=== PATIENT | female | born 1935 | race Caucasian/White ===

== ENCOUNTER 2016-07-28 18:13 | Inpatient (IN) ==
[2016-07-28 18:54] LABS: Bilirubin,Urine Negative (Negative); Blood,Urine Negative (Negative); Clarity,Urine Clear (Clear); Color,Urine Yellow (Yellow); Glucose,Urine (UA) Normal (Normal); Ketones,Urine Negative (Negative); Leukocyte Esterase,Urine Trace (Negative); Nitrite,Urine Negative (Negative); PH,Urine 6.5 pH Units (5.0-8.0); Protein,Urine Negative (Neg-Trace); Specific Gravity,Urine 1.011 (1.010-1.025); Urobilinogen,Urine Normal (Normal)
[2016-07-28 18:57] LABS: Bacteria,Urine None Seen per hpf (None-Few); Hyaline Casts,Urine None Seen per lpf (None-Few); RBC,Urine 0-3 per hpf (0-3); Squamous Epithelial Cell,Urine Many per lpf (None-Few)
--- NOTE | 2016-07-28 19:23 | Emergency Department Note ---
Disposition Clinical Impression: Near syncope, Frail elderly, Pacemaker, Renal insufficiency, Cerebral vascular disease, Pre-syncope Disposition: Admitted As Inpatient [facility] - Forms: ED Satisfaction Letter General Adult HPI - General Chief complaint: ED Dizziness Stated complaint: Lightheaded Source: patient, EMS Limitations: no limitations - History of Present Illness HPI Narrative: 81-year-old female [place] the emergency department [place] the [place]. She was at home today and felt poorly and had some trouble standing up because she felt dizzy. The patient did not fall down. She had no trouble moving her arms or legs independently no arm or leg weakness or numbness on either side she did not develop dysarthria or confusion. The patient's grandchildren noticed that she was not feeling well to look her to the [place] where they evaluated her and were concerned about her general health status and sent her to the ED. The patient has had no chest pain or shortness of breath. She denies abdominal pain vomiting or diarrhea there is no history of headache neck stiffness rash fever cough runny nose or ear pain or sore throat. The patient denies any physical complaints apart from some difficulty standing and feeling dizzy. The patient did not pass out completely but the grandchildren do describe events where the patient was having to hold herself up with her arms on the table and her head was slumped over. There is no history of seizure-like activity. The patient is not known to be diabetic. Pain Scale: 0 - Related Data Allergies Allergy/AdvReac Type Severity Reaction Status Date / Time morphine Allergy Nausea Verified 07/28/16 18:15 naproxen [From Naprosyn] Allergy Hives Verified 07/28/16 18:16 sulfamethoxazole Allergy Hives Verified 07/28/16 18:16 [From Bactrim] trimethoprim [From Bactrim] Allergy Hives Verified 07/28/16 18:16 All systems ED: reviewed and negative except as stated. Past Medical History - Past Medical History Medical history: Reports: CHF, CVA, hypertension, renal disease Psychiatric history: Reports: no psych history - Social History Smoking Status: Never smoker Alcohol use: Reports: none Drug use: Reports: none Physical Exam - General Limitations: no limitations General appearance: alert - Head Head exam: atraumatic, normocephalic, normal inspection - Eye Eye exam: Present: normal appearance, PERRL, EOMI - ENT ENT exam: normal exam, normal oropharynx, mucous membranes moist, normal external ear exam, other (Hearing aids in place) - Neck Neck exam: Present: normal inspection, full ROM, trachea midline - Chest Chest inspection: Present: symmetric chest wall rise. Absent: tenderness - Respiratory Respiratory exam: Present: normal lung sounds bilaterally. Absent: respiratory distress - Cardiovascular Cardiovascular exam: Present: regular rate, normal rhythm - Abdominal Exam Abdominal exam: Present: soft, Non-Tender. Absent: tenderness, distention, guarding, rebound, rigidity - Extremities Exam Extremities exam: Present: full ROM, pedal edema, other (Notable edema and erythema in the bilateral lower extremities.). Absent: normal inspection, tenderness, joint swelling, calf tenderness - Expanded Lower Extremity Exam Hip/Pelvis exam: Absent: tenderness Upper leg exam: Absent: tenderness Knee exam: Absent: tenderness Lower leg exam: Absent: tenderness Neurovascular/Tendon exam: Present: normal capillary refill. Absent: motor deficit, sensory deficit, tendon deficit - Back Exam Back exam: Present: normal inspection, full ROM. Absent: tenderness, CVA tenderness (R), CVA tenderness (L), vertebral tenderness - Neurological Exam Neurological exam: Present: alert, oriented X3, CN II-XII intact. Absent: motor sensory deficit - Psychiatric Psychiatric exam: Present: normal affect, normal mood - Skin Skin exam: Present: warm, dry, intact, normal color, erythema (Erythema on the bilateral lower extremities no crepitance of the skin. Some scabbed lesions.) Course Vital Signs Temperature 97.9 F 07/28/16 18:17 Pulse Rate 82 07/28/16 18:17 Respiratory Rate 16 07/28/16 18:17 Blood Pressure 141/89 07/28/16 18:17 O2 Sat by Pulse Oximetry 98 07/28/16 18:17 Temperature 97.9 F 07/28/16 18:17 Pulse Rate 82 07/28/16 18:17 Respiratory Rate 16 07/28/16 18:17 Blood Pressure 141/89 07/28/16 18:17 O2 Sat by Pulse Oximetry 98 07/28/16 18:17 Oxygen Delivery Oxygen Delivery Room Air Medical Decision Making - [facility] Narrative Medical decision making narrative: The patient is elderly and has significant vascular risk factors. She has had what is described as near syncopal events for 2 days. The [facility] are very concerned based on her history and sent her in for evaluation. The patient has a pacemaker in situ but does not describe any chest pain or palpitations. There is no history of fall or injury. No numbness or weakness in the arms or legs. She is having trouble standing and getting around. Her BUN/Creatinine are elevated but her orthostatics are negative. Based on her comorbidities and apparent inability to stand or walk well and would be appropriate to admit the patient for further evaluation. An MRI may be considered. Further cardiac monitoring and/or interrogation of her pacemaker may also be helpful. I have consulted the hospitalist on-call. - Lab Data Lab results reviewed: Yes I reviewed the patient's lab results. Result diagrams: 07/28/16 20:33 07/28/16 20:33 Lab Results 07/28/16 07/28/16 07/28/16 Range/Units 18:45 20:33 20:33 WBC 7.6 (4.3-11.1) K/mcL RBC 3.72 L (3.82-4.97) M/mcL Hgb 12.2 (11.5-15.4) g/dL Hct 37.8 (35.3-44.9) % MCV 101.6 H (83.0-100.0) fL MCH 32.8 (28.0-33.3) pg MCHC 32.3 (31.6-35.5) g/dL RDW 13.1 (11.5-14.5) % Plt Count 179 (140-400) K/mcL MPV 11.7 (9.4-12.4) fL Immature Gran % 0.5 (0-4) % Seg Neutrophils % 64.9 % Lymphocytes % 20.1 % Monocytes % 10.0 % Eosinophils % 3.4 % Basophils % 1.1 % Neutrophils # 4.9 (1.6-8.9) K/mcL Lymphocytes # 1.5 (0.6-4.6) K/mcL Monocytes # 0.8 (0.0-1.3) K/mcL Eosinophils # 0.3 (0.0-0.6) K/mcL Basophils # 0.1 (0.0-0.2) K/mcL PT (9.4-12.1) Seconds INR APTT (26.0-36.0) Seconds Sodium 142 (136-145) mEq/L Potassium 3.9 (3.5-4.5) mEq/L Chloride 106 (98-109) mEq/L Carbon Dioxide 26 (19-29) mEq/L BUN 41 H (7-20) mg/dL Creatinine 1.45 H (0.57-1.11) mg/dL Est GFR ( Amer) 42 L (> 60) Est GFR (Non-Af Amer) 35 L (> 60) BUN/Creatinine Ratio 28 H (6-26) Glucose 94 (70-99) mg/dL Calculated Osmolality 304 H (280-300) Lactic Acid (0.5-2.2) mmol/L Calcium 9.6 (8.6-10.8) mg/dL Total Bilirubin (0.2-1.2) mg/dL Direct Bilirubin (0.0-0.5) mg/dL Indirect Bilirubin (0.0-1.2) mg/dL AST (5-34) Units/L ALT (0-55) Units/L Alkaline Phosphatase (38-126) Units/L Troponin I (0-0.03) ng/mL C-Reactive Protein (Less than 5) mg/L Serum Total Protein (6.0-8.3) g/dL Albumin (3.5-5.0) g/dL Globulin (2.4-3.5) g/dL Albumin/Globulin Ratio (1.1-2.2) Urine Color Yellow (Yellow) Urine Clarity Clear (Clear) Urine pH 6.5 (5.0-8.0) pH Units Ur Specific Isle 1.011 (1.010-1.025) Urine Protein Negative (Neg-Trace) mg/dL Urine Glucose (UA) Normal (Normal) mg/dL Urine Ketones Negative (Negative) mg/dL Urine Blood Negative (Negative) Urine Nitrite Negative (Negative) Urine Bilirubin Negative (Negative) Urine Urobilinogen Normal (Normal) mg/dL Ur Leukocyte Esterase Trace H (Negative) Urine Microscopic RBC 0-3 (0-3) per hpf Urine Microscopic WBC 3-5 H (0-3) per hpf Ur Squamous Epith Cells Many H (None-Few) per lpf Urine Bacteria None Seen (None-Few) per hpf Hyaline Casts None Seen (None-Few) per lpf Ur Culture Indicated? YES A (NO) 07/28/16 07/28/16 07/28/16 Range/Units 20:33 20:33 20:33 WBC (4.3-11.1) K/mcL RBC (3.82-4.97) M/mcL Hgb (11.5-15.4) g/dL Hct (35.3-44.9) % MCV (83.0-100.0) fL MCH (28.0-33.3) pg MCHC (31.6-35.5) g/dL RDW (11.5-14.5) % Plt Count (140-400) K/mcL MPV (9.4-12.4) fL Immature Gran % (0-4) % Seg Neutrophils % % Lymphocytes % % Monocytes % % Eosinophils % % Basophils % % Neutrophils # (1.6-8.9) K/mcL Lymphocytes # (0.6-4.6) K/mcL Monocytes # (0.0-1.3) K/mcL Eosinophils # (0.0-0.6) K/mcL Basophils # (0.0-0.2) K/mcL PT (9.4-12.1) Seconds INR APTT (26.0-36.0) Seconds Sodium (136-145) mEq/L Potassium (3.5-4.5) mEq/L Chloride (98-109) mEq/L Carbon Dioxide (19-29) mEq/L BUN (7-20) mg/dL Creatinine (0.57-1.11) mg/dL Est GFR ( Amer) (> 60) Est GFR (Non-Af Amer) (> 60) BUN/Creatinine Ratio (6-26) Glucose (70-99) mg/dL Calculated Osmolality (280-300) Lactic Acid 1.0 (0.5-2.2) mmol/L Calcium (8.6-10.8) mg/dL Total Bilirubin 0.7 (0.2-1.2) mg/dL Direct Bilirubin 0.4 (0.0-0.5) mg/dL Indirect Bilirubin 0.3 (0.0-1.2) mg/dL AST 23 (5-34) Units/L ALT 14 (0-55) Units/L Alkaline Phosphatase 85 (38-126) Units/L Troponin I 0.01 (0-0.03) ng/mL C-Reactive Protein 1 (Less than 5) mg/L Serum Total Protein 7.4 (6.0-8.3) g/dL Albumin 3.6 (3.5-5.0) g/dL Globulin 3.8 H (2.4-3.5) g/dL Albumin/Globulin Ratio 0.9 L (1.1-2.2) Urine Color (Yellow) Urine Clarity (Clear) Urine pH (5.0-8.0) pH Units Ur Specific Isle (1.010-1.025) Urine Protein (Neg-Trace) mg/dL Urine Glucose (UA) (Normal) mg/dL Urine Ketones (Negative) mg/dL Urine Blood (Negative) Urine Nitrite (Negative) Urine Bilirubin (Negative) Urine Urobilinogen (Normal) mg/dL Ur Leukocyte Esterase (Negative) Urine Microscopic RBC (0-3) per hpf Urine Microscopic WBC (0-3) per hpf Ur Squamous Epith Cells (None-Few) per lpf Urine Bacteria (None-Few) per hpf Hyaline Casts (None-Few) per lpf Ur Culture Indicated? (NO) 07/28/16 Range/Units 20:33 WBC (4.3-11.1) K/mcL RBC (3.82-4.97) M/mcL Hgb (11.5-15.4) g/dL Hct (35.3-44.9) % MCV (83.0-100.0) fL MCH (28.0-33.3) pg MCHC (31.6-35.5) g/dL RDW (11.5-14.5) % Plt Count (140-400) K/mcL MPV (9.4-12.4) fL Immature Gran % (0-4) % Seg Neutrophils % % Lymphocytes % % Monocytes % % Eosinophils % % Basophils % % Neutrophils # (1.6-8.9) K/mcL Lymphocytes # (0.6-4.6) K/mcL Monocytes # (0.0-1.3) K/mcL Eosinophils # (0.0-0.6) K/mcL Basophils # (0.0-0.2) K/mcL PT 25.4 H (9.4-12.1) Seconds INR 2.3 APTT 35.2 (26.0-36.0) Seconds Sodium (136-145) mEq/L Potassium (3.5-4.5) mEq/L Chloride (98-109) mEq/L Carbon Dioxide (19-29) mEq/L BUN (7-20) mg/dL Creatinine (0.57-1.11) mg/dL Est GFR ( Amer) (> 60) Est GFR (Non-Af Amer) (> 60) BUN/Creatinine Ratio (6-26) Glucose (70-99) mg/dL Calculated Osmolality (280-300) Lactic Acid (0.5-2.2) mmol/L Calcium (8.6-10.8) mg/dL Total Bilirubin (0.2-1.2) mg/dL Direct Bilirubin (0.0-0.5) mg/dL Indirect Bilirubin (0.0-1.2) mg/dL AST (5-34) Units/L ALT (0-55) Units/L Alkaline Phosphatase (38-126) Units/L Troponin I (0-0.03) ng/mL C-Reactive Protein (Less than 5) mg/L Serum Total Protein (6.0-8.3) g/dL Albumin (3.5-5.0) g/dL Globulin (2.4-3.5) g/dL Albumin/Globulin Ratio (1.1-2.2) Urine Color (Yellow) Urine Clarity (Clear) Urine pH (5.0-8.0) pH Units Ur Specific Isle (1.010-1.025) Urine Protein (Neg-Trace) mg/dL Urine Glucose (UA) (Normal) mg/dL Urine Ketones (Negative) mg/dL Urine Blood (Negative) Urine Nitrite (Negative) Urine Bilirubin (Negative) Urine Urobilinogen (Normal) mg/dL Ur Leukocyte Esterase (Negative) Urine Microscopic RBC (0-3) per hpf Urine Microscopic WBC (0-3) per hpf Ur Squamous Epith Cells (None-Few) per lpf Urine Bacteria (None-Few) per hpf Hyaline Casts (None-Few) per lpf Ur Culture Indicated? (NO) - Radiology Data Radiology results reviewed: Yes I reviewed the patient's radiology results.
[2016-07-28 20:42] LABS: Basophils # 0.1 K/mcL (0.0-0.2); Basophils % 1.1 %; Eosinophils # 0.3 K/mcL (0.0-0.6); Eosinophils % 3.4 %; Hematocrit 37.8 % (35.3-44.9); Hemoglobin 12.2 g/dL (11.5-15.4); Immature Granulocytes % 0.5 % (0-4); Lymphocytes # 1.5 K/mcL (0.6-4.6); Lymphocytes % 20.1 %; Mean Corpuscular HGB Conc 32.3 g/dL (31.6-35.5); Mean Corpuscular Hemoglobin 32.8 pg (28.0-33.3); Mean Corpuscular Volume 101.6 fL (83.0-100.0); Mean Platelet Volume 11.7 fL (9.4-12.4); Monocytes # 0.8 K/mcL (0.0-1.3); Neutrophils # 4.9 K/mcL (1.6-8.9); Platelet Count 179 K/mcL (140-400); Red Blood Count 3.72 M/mcL (3.82-4.97); Red Cell Distribution Width 13.1 % (11.5-14.5); Segmented Neutrophils % 64.9 %
[2016-07-28 20:49] LABS: INR 2.3; Prothrombin Time 25.4 Seconds (9.4-12.1)
[2016-07-28 20:52] LABS: Activated Partial Thrombo Time 35.2 Seconds (26.0-36.0)
[2016-07-28 20:57] LABS: Calcium 9.6 mg/dL (8.6-10.8); Potassium 3.9 mEq/L (3.5-4.5)
[2016-07-28 20:58] LABS: Albumin 3.6 g/dL (3.5-5.0); Albumin/Globulin Ratio 0.9 (1.1-2.2); Bilirubin,Direct 0.4 mg/dL (0.0-0.5); Bilirubin,Indirect 0.3 mg/dL (0.0-1.2); Bilirubin,Total 0.7 mg/dL (0.2-1.2); Globulin 3.8 g/dL (2.4-3.5); Total Protein 7.4 g/dL (6.0-8.3)
[2016-07-28] MEDS ORDERED: Ondansetron ODT 4 MG TAB.RAPDIS SL PRN (23:47)
[2016-07-28] MEDS ORDERED: Acetaminophen 325 MG TABLET PO PRN (23:47)
[2016-07-28] MEDS ORDERED: *HR* OxyCODONE Immed Rel 5 MG TABLET PO PRN (23:47)
[2016-07-28] MEDS ORDERED: Naloxone 0.4 MG/ML INJ IVP PRN (23:47)
[2016-07-29 00:58] LABS: Ionized Calcium 1.19 mmol/L (1.15-1.35)
[2016-07-29 01:04] LABS: Magnesium 1.9 mg/dL (1.6-2.6); Phosphorous 3.6 mg/dL (2.3-4.7)
[2016-07-29 01:07] LABS: C-Reactive Protein 1 mg/L (Less than 5)
[2016-07-29 01:08] LABS: Chol/HDL Ratio 2.5 (0-4.9); Cholesterol 109 mg/dL (< 200); HDL Cholesterol 43 mg/dL (40-59); LDL Cholesterol,Calculated 51 mg/dL (0-99); Triglycerides 77 mg/dL (< 150)
[2016-07-29 01:09] LABS: Ethanol < 10 mg/dL (0-10); Hemoglobin A1C 5.2 %
[2016-07-29 01:28] LABS: Thyroid Stimulating Hormone 4.136 mcIU/mL (0.350-4.840)
[2016-07-29] MEDS: 0.9 % Sodium Chloride 1,000 ML IVC SCH ×2 (01:28→17:52)
[2016-07-29 01:41] LABS: Folate 10.6 ng/mL (7.0-31.4)
--- NOTE | 2016-07-29 01:53 | Internal Med History&Physical ---
<Maurisio Owusu - Last Filed: 07/29/16 06:43> Date of Encounter: 07/29/16 Time of Encounter: 01:00 Assessment and Plan (1) Near syncope Current visit: Yes Status: Acute Will pursue cardiac workup with present history. Consider dehydration as labs reflect SHANTEL. Continue to monitor. Treat underlying abnormalities. (2) SHANTEL (acute kidney injury) Current visit: Yes Status: Acute BUN/ SCr elevated at 4.1/1.45 with GFR of 35. Avoid nephrotoxins. Plan to cautiously rehydrate in the setting of CHF and chronic LE edema. (3) Pacemaker Current visit: Yes Status: Chronic Medtronic pacer placed 02/01/2010 at [facility] in [place]. Consult cardiology for pacemaker interrogation. (4) Elevated troponin I level Current visit: Yes Status: Acute [facility] trop[facility] 0.03. Found to be 0.01 upon admission, 0.04 on recheck. Trend troponins. Continue statin, nitro/imdur, BB, ASA. (5) CHF (congestive heart failure) Current visit: Yes Status: Acute History of systolic CHF. [facility] records note patient saw Dr. Mccormack in Feb 2016 with severe mitral and tricuspid regurgitation with mild pulmonary HTN. Chronic bilateral LE edema, no crackles on lungs exam. Patient on lasix and BB. Qualifiers: Congestive heart failure type: systolic Congestive heart failure chronicity : chronic Qualified Code(s): I50.22 - Chronic systolic (congestive) heart failure (6) HTN (hypertension) Current visit: Yes Status: Chronic Current BP 136/81. Continue home medications. Qualifiers: Hypertension type: essential hypertension Qualified Code(s): I10 - Essential (primary) hypertension (7) History of atrial fibrillation Current visit: Yes Status: Chronic Onset 05/16/2009. Pacer placed in 2009 EKG currently shows ventricular paced rhythm with HR 84. Patient on coumadin therapy, INR currently 2.3. (8) History of TIA (transient ischemic attack) Current visit: Yes Status: Chronic TIA in 1994, with right sided residual weakness. History of a fib. Anticoagulated with coumadin. Internal Medicine - H&P: HPI Chief complaint: "lightheadedness" Admitted From: Emergency Dept (transfer from [facility]) Plans for Post Hospital Care: Home History of present illness: Ms. Vazquez is a 81 year old female that presented to the ED from the [facility] for lightheadedness. Patient states it began yesterday afternoon and has occurred many times today. Patient states she feels lightheadedness, but does not feel dizzy. These episodes all occurred while standing and are relieved by sitting/ rest. Patient denies any lightheadedness initially upon standing. She denies any headache, vision changes, palpitations, chest pain, shortness of breath, abdominal pain, dysuria, diarrhea, or constipation. Admits to nausea currently, but denies any nausea prior to this moment; states she believes she is hungry as she has only had soup today. Patient believes she has had similar episodes in the past, but can not recall when or how often. Pertinent past history of a fib, CHF, medtronic pacemaker in 2009 @ [facility] in [place], HTN, statis dermatitis, and TIA in 1994 with residual R sided weakness. [facility] orthostatics: laying 114/70 P80, sitting 128/82 P84, standing 132/86 P 82 Past Med Surg Social Fam HX - Past Medical History Medical history: CHF, CVA, hypertension, renal disease Psychiatric history: no psych history - Past Surgical History Surgical History: herniorrhaphy (ventral), hysterectomy (s/p endometrial CA by Dr. Anderson), pacemaker - Social History Smoking Status: Never smoker Alcohol use: none Drug use: none - Family History Mother Living Status: Cause of : cerebral hemmorage Father Living Status: Age at : 81 Internal Medicine - H&P: Meds Aspirin [Lo-Dose Aspirin EC] 81 mg PO DAILY 07/29/16 [History] Atorvastatin [Lipitor] 40 mg PO HS 07/29/16 [History] Calcitriol [Rocaltrol] 0.25 mcg PO DAILY 07/29/16 [History] Ferrous Gluconate 324 mg PO BID 07/29/16 [History] Furosemide [Lasix] 40 mg PO BID 07/29/16 [History] Isosorbide MONOnitrate (24 HR) [Imdur] 15 mg PO DAILY 07/29/16 [History] Lisinopril [Zestril] 10 mg PO DAILY 07/29/16 [History] Metoprolol Succinate 200 mg PO DAILY 07/29/16 [History] Oxybutynin Chloride [Ditropan Xl] 5 mg PO BID 07/29/16 [History] Potassium Chloride 20 meq PO DAILY 07/29/16 [History] Ranitidine HCl [Heartburn Relief] 150 mg PO BID 07/29/16 [History] Triamcinolone Acetonide 1 appl TP BID 07/29/16 [History] Warfarin [Coumadin] 6 mg PO MOWEFR 07/29/16 [History] Warfarin [Coumadin] 8 mg PO SUTUTHSA 07/29/16 [History] Allergies morphine Allergy (Verified 07/28/16 18:15) Nausea naproxen [From Naprosyn] Allergy (Verified 07/28/16 18:16) Hives sulfamethoxazole [From Bactrim] Allergy (Verified 07/28/16 18:16) Hives trimethoprim [From Bactrim] Allergy (Verified 07/28/16 18:16) Hives All Systems PM: A 10-system review of systems was performed and is negative for pertinent findings except as documented above in the HPI. - Constitutional Constitutional: no chills, no fever(s), no falls - EENT Eyes: no blurry vision, no change in vision Additional comments: hearing aids Nose, mouth and throat: no dysphagia, no neck pain, no sore throat - Cardiovascular Cardiovascular ROS IM: edema, lightheadedness, no chest pain, no dyspnea, no palpitations, no syncope - Respiratory Respiratory: no cough, no dyspnea - Gastrointestinal Gastrointestinal: nausea, no abdominal pain, no constipation, no diarrhea, no vomiting - Musculoskeletal Musculoskeletal ROS IM: muscle weakness (right leg) - Integumentary Integumentary IM: pruritus (of back) - Neurological Neurological ROS: no confusion, no dizziness, no frequent falls - Constitutional Vitals: Temp Pulse Resp BP Pulse Ox 98.1 F 88 18 137/83 94 L 07/29/16 00:08 07/29/16 00:08 07/29/16 00:08 07/29/16 00:08 07/29/16 01:11 General appearance: Present: cooperative, A&O X 3, pleasant, no acute distress, answers questions appropriately - Head Head exam: Present: atraumatic, normocephalic - Eye Eye exam: Present: EOMI, PERRL, conjuntiva pink, sclera anicteric Pupils: Present: PERRL - ENT ENT exam: Present: normal oropharynx - Neck Neck exam general surgery: Present: full ROM, supple, trachea midline. Absent: lymphadenopathy - Respiratory Respiratory exam: Present: CTAB. Absent: accessory muscle use, rales, rhonchi, wheezes - Cardiovascular Cardiovascular exam: Present: RRR, +S1, +S2. Absent: diastolic murmur, gallop, rubs, systolic murmur - GI/Abdominal GI/Abdominal exam: Present: normal bowel sounds, soft, no peritoneal signs. Absent: distended, tenderness - Extremities Exam Extremities exam: Present: pedal edema, warm, radial pulses palpable and symetrical. Absent: calf tenderness, cyanotic - Neurological Exam Neurological exam: Present: alert, oriented X3, no focal deficits. Absent: strengths equal and symetr throughout (right UE slightly weaker (4/5) then left UE (5/5). Patient states chronic right LE pain and more difficult to move.), facial droop, speech deficit Additional comments: DP pulses 2+ bilaterally. - Skin Skin exam: Present: dry (scratch iglesias on back consistent with patient's complaint of dry skin.), erythema (erythema/statis dermatitis of bilateral lower calves.), intact Internal Med - H&P Results - Labs CBC & Chem 7: 07/28/16 20:33 07/28/16 20:33 Labs: Cardiac Enzymes 07/29/16 Range/Units 00:42 Troponin I 0.04 H* (0-0.03) ng/mL - Impressions Ventricular paced rhythem, ventricular rate 84. <Josiah Gill - Last Filed: 07/31/16 00:43> Date of Encounter: 07/28/16 Time of Encounter: 23:00 Assessment and Plan (1) Postural dizziness with presyncope Current visit: Yes Status: Acute . (2) Orthostatic hypotension Current visit: Yes Status: Acute . (3) Chronic systolic CHF (congestive heart failure) Current visit: Yes Status: Acute . (4) Coronary artery disease, non-occlusive Current visit: Yes Status: Acute . (5) Presence of permanent cardiac pacemaker Current visit: Yes Status: Acute . (6) Acute kidney injury superimposed on CKD Current visit: Yes Status: Acute . (7) Dehydration, mild Current visit: Yes Status: Acute . (8) Chronic anticoagulation Current visit: Yes Status: Chronic . (9) On warfarin therapy Current visit: Yes Status: Chronic . (10) History of CVA in adulthood Current visit: Yes Status: Chronic . (11) Near syncope Current visit: Yes Status: Acute (12) CKD (chronic kidney disease) stage 3, GFR 30-59 ml/min Current visit: Yes Status: Chronic . (13) HTN (hypertension) Current visit: Yes Status: Chronic Qualifiers: Hypertension type: essential hypertension Qualified Code(s): I10 - Essential (primary) hypertension (14) History of TIA (transient ischemic attack) Current visit: Yes Status: Chronic (15) Obesity (BMI 30.0-34.9) Current visit: Yes Status: Chronic . (16) Dyslipidemia Current visit: Yes Status: Chronic . (17) Demand ischemia of myocardium Current visit: Yes Status: Acute . (18) Elevated troponin I level Current visit: Yes Status: Acute Internal Medicine - H&P: HPI History of present illness: Ms. Vazquez is a 81 year old female [facility] patient with significant medical history of CKD III-IV, osteoarthritis, osteoporosis, hypertension, dyslipidemia, nonobstCAD/chronic systolic CHF/LVEF 35%, valvular heart disease (severe mitral and tricuspid regurgitation with mild pulmonary hypertension), H/O CVAs/TIAs, chronic atrial fibrillation/s/p AV node ablation/PPM, chronic anticoagulation ( Coumadin), iron deficiency, vitamin D deficiency, GERD, ROBINSON/urge incontinence, PVD/chronic LE edema/venous stasis, nonsmoker. The patient was visited and interviewed and examined. I examined this patient and my medical decision-making was reviewed with the Resident Physician. I agree with the documented findings, disposition and treatment plan as described except to the extent set forth below. Cumulative laboratory and radiographic database was reviewed and considered and discussed. Pertinent ancillary medical records including [facility], [facility] and [facility] documentation, when available, was reviewed and considered. Given the patient's presenting concerns, past medical history, clinical findings and symptoms, she is admitted this time to undergo further evaluation and disposition. Orders were written as per the computerized physician warehouse order puller system.... Past Med Surg Social Fam HX - Past Medical History Source: old records reviewed Medical history: arthritis, atrial fibrillation, cancer (History of endometrial carcinoma status post hysterectomy), cardiomyopathy (Chronic systolic CHF, LVEF less than 35%.), coronary artery disease, GERD, hyperlipidemia, osteoporosis, TIA, venous stasis, valvular heart disease, other - Past Surgical History Surgical History: cancer surgery (Hysterectomy for endometrial carcinoma), hip replacement, other - Social History Smokeless Tobacco Status: No Occupational status: retired Current living situation: Home - Independent Activity Level: Independent ambulation, Uses cane/walker, Mostly sedentary Recent Out of Country Travel Within the Last 8 Weeks: No Exposure or Possible Exposure to Illness During Travel: No All Systems PM: A 10-system review of systems was performed and is negative for pertinent findings except as documented above in the HPI. - Constitutional Vitals: Temp Pulse Resp BP Pulse Ox 98.5 F 60 14 147/84 96 07/30/16 20:19 07/30/16 20:19 07/30/16 20:19 07/30/16 20:19 07/30/16 20:19 Internal Med - H&P Results - Labs CBC & Chem 7: 07/28/16 20:33 07/30/16 04:11 Labs: BMP 07/30/16 04:11 Sodium 140 Potassium 4.1 Chloride 108 Carbon Dioxide 23 BUN 36 H Creatinine 1.33 H Glucose 102 H Calcium 9.1 - Impressions ITS Impressions Chest X-Ray 07/30/16 11:54 IMPRESSION: 1. Right upper extremity PICC tip terminates at the atrial caval junction. 2. Stable cardiomegaly. 3. Basilar atelectasis. D/ / 07/30/2016 13:18:02 Deyanira Ventura MD / jeff Interpreting Provider: Deyanira Ventura MD Chest X-Ray 07/30/16 16:53 IMPRESSION: A third pacer lead has been placed since the prior exam. No evident pneumothorax. Cardiac silhouette enlargement is not significantly changed. D/ / 07/30/2016 17:25:46 Luis Carrillo MD / jeff Interpreting Provider: Luis Carrillo MD Vital Signs Temp Pulse Resp BP Pulse Ox 07/30/16 20:19 98.5 F 60 14 147/84 96 07/30/16 17:36 95 07/30/16 17:31 97.8 F 60 12 143/91 94 L 07/30/16 08:15 95 07/30/16 07:17 97.8 F 85 15 136/84 95 07/30/16 03:17 97.9 F 80 16 127/77 94 L Intake and Output 07/30/16 07/30/16 07/31/16 15:59 23:59 07:59 Intake Total 653 / 653 Balance 653 / 653 Intake: IV Fluids DOPamine Premix (400mg/ 250mL D5W) 400 mg In 250 ml @ 5 MCG/KG/MIN 16.069 mls/hr IVC .[id number] [facility] Rx#:[id number] Oral 620 / 620 Other: Meal Breakfast Percent of Meal Consumed 100% Blood Glucose* 122 BMP 07/30/16 Range/Units 04:11 Sodium 140 (136-145) mEq/L Potassium 4.1 (3.5-4.5) mEq/L Chloride 108 (98-109) mEq/L Carbon Dioxide 23 (19-29) mEq/L BUN 36 H (7-20) mg/dL Creatinine 1.33 H (0.57-1.11) mg/dL Glucose 102 H (70-99) mg/dL Calcium 9.1 (8.6-10.8) mg/dL Abnormal lab results RBC 3.72 M/mcL (3.82-4.97) L 07/28/16 20:33 MCV 101.6 fL (83.0-100.0) H 07/28/16 20:33 PT 18.4 Seconds (9.4-12.1) H 07/30/16 08:41 BUN 36 mg/dL (7-20) H 07/30/16 04:11 Creatinine 1.33 mg/dL (0.57-1.11) H 07/30/16 04:11 Est GFR ( Amer) 47 (> 60) L 07/30/16 04:11 Est GFR (Non-Af Amer) 38 (> 60) L 07/30/16 04:11 BUN/Creatinine Ratio 27 (6-26) H 07/30/16 04:11 Glucose 102 mg/dL (70-99) H 07/30/16 04:11 POC Glucose 122 (58-89) H 07/30/16 10:52 Globulin 3.8 g/dL (2.4-3.5) H 07/28/16 20:33 Albumin/Globulin Ratio 0.9 (1.1-2.2) L 07/28/16 20:33 Ur Leukocyte Esterase Trace (Negative) H 07/28/16 18:45 Urine Microscopic WBC 3-5 per hpf (0-3) H 07/28/16 18:45 Ur Squamous Epith Cells Many per lpf (None-Few) H 07/28/16 18:45 Ur Culture Indicated? YES (NO) A 07/28/16 18:45 Allergies Allergy/AdvReac Type Severity Reaction Status Date / Time morphine Allergy Nausea Verified 07/28/16 18:15 naproxen [From Naprosyn] Allergy Hives Verified 07/28/16 18:16 sulfamethoxazole Allergy Hives Verified 07/28/16 18:16 [From Bactrim] trimethoprim [From Bactrim] Allergy Hives Verified 07/28/16 18:16 Laboratory Last Values WBC 7.6 K/mcL (4.3-11.1) 07/28/16 20:33 RBC 3.72 M/mcL (3.82-4.97) L 07/28/16 20:33 Hgb 12.2 g/dL (11.5-15.4) 07/28/16 20:33 Hct 37.8 % (35.3-44.9) 07/28/16 20:33 MCV 101.6 fL (83.0-100.0) H 07/28/16 20:33 MCH 32.8 pg (28.0-33.3) 07/28/16 20:33 MCHC 32.3 g/dL (31.6-35.5) 07/28/16 20:33 RDW 13.1 % (11.5-14.5) 07/28/16 20:33 Plt Count 179 K/mcL (140-400) 07/28/16 20:33 MPV 11.7 fL (9.4-12.4) 07/28/16 20:33 Immature Gran % 0.5 % (0-4) 07/28/16 20:33 Seg Neutrophils % 64.9 % 07/28/16 20:33 Lymphocytes % 20.1 % 07/28/16 20:33 Monocytes % 10.0 % 07/28/16 20:33 Eosinophils % 3.4 % 07/28/16 20:33 Basophils % 1.1 % 07/28/16 20:33 Neutrophils # 4.9 K/mcL (1.6-8.9) 07/28/16 20:33 Lymphocytes # 1.5 K/mcL (0.6-4.6) 07/28/16 20:33 Monocytes # 0.8 K/mcL (0.0-1.3) 07/28/16 20:33 Eosinophils # 0.3 K/mcL (0.0-0.6) 07/28/16 20:33 Basophils # 0.1 K/mcL (0.0-0.2) 07/28/16 20:33 PT 18.4 Seconds (9.4-12.1) H 07/30/16 08:41 INR 1.7 07/30/16 08:41 APTT 35.2 Seconds (26.0-36.0) 07/28/16 20:33 Sodium 140 mEq/L (136-145) 07/30/16 04:11 Potassium 4.1 mEq/L (3.5-4.5) 07/30/16 04:11 Chloride 108 mEq/L (98-109) 07/30/16 04:11 Carbon Dioxide 23 mEq/L (19-29) 07/30/16 04:11 BUN 36 mg/dL (7-20) H 07/30/16 04:11 Creatinine 1.33 mg/dL (0.57-1.11) H 07/30/16 04:11 Est GFR ( Amer) 47 (> 60) L 07/30/16 04:11 Est GFR (Non-Af Amer) 38 (> 60) L 07/30/16 04:11 BUN/Creatinine Ratio 27 (6-26) H 07/30/16 04:11 Glucose 102 mg/dL (70-99) H 07/30/16 04:11 POC Glucose 122 (58-89) H 07/30/16 10:52 Est Mean Plasma Glucose 103 mg/dl 07/29/16 00:42 Hemoglobin A1c 5.2 % (-5.6) 07/29/16 00:42 Calculated Osmolality 299 (280-300) 07/30/16 04:11 Lactic Acid 1.2 mmol/L (0.5-2.2) 07/29/16 00:42 Calcium 9.1 mg/dL (8.6-10.8) 07/30/16 04:11 Ionized Calcium 1.19 mmol/L (1.15-1.35) 07/29/16 00:42 Phosphorus 3.6 mg/dL (2.3-4.7) 07/29/16 00:42 Magnesium 1.9 mg/dL (1.6-2.6) 07/29/16 00:42 Iron 67 mcg/dL (50-170) 07/29/16 05:27 % Saturation 20 % (15-50) 07/29/16 05:27 Transferrin 237 mg/dL (180-382) 07/29/16 05:27 Total Bilirubin 0.7 mg/dL (0.2-1.2) 07/28/16 20:33 Direct Bilirubin 0.4 mg/dL (0.0-0.5) 07/28/16 20:33 Indirect Bilirubin 0.3 mg/dL (0.0-1.2) 07/28/16 20:33 AST 23 Units/L (5-34) 07/28/16 20:33 ALT 14 Units/L (0-55) 07/28/16 20:33 Alkaline Phosphatase 85 Units/L (38-126) 07/28/16 20:33 Troponin I 0.01 ng/mL (0-0.03) 07/29/16 11:58 C-Reactive Protein 1 mg/L (Less than 5) 07/29/16 00:42 Serum Total Protein 7.4 g/dL (6.0-8.3) 07/28/16 20:33 Albumin 3.6 g/dL (3.5-5.0) 07/28/16 20:33 Globulin 3.8 g/dL (2.4-3.5) H 07/28/16 20:33 Albumin/Globulin Ratio 0.9 (1.1-2.2) L 07/28/16 20:33 Triglycerides 77 mg/dL (< 150) 07/29/16 00:42 Cholesterol 109 mg/dL (< 200) 07/29/16 00:42 LDL Cholesterol, Calc 51 mg/dL (0-99) 07/29/16 00:42 VLDL Cholesterol, Calc 15 mg/dL (< 31) 07/29/16 00:42 HDL Cholesterol 43 mg/dL (40-59) 07/29/16 00:42 Cholesterol/HDL Ratio 2.5 (0-4.9) 07/29/16 00:42 Vitamin B12 591 pg/mL (213-816) 07/29/16 00:42 Folate 10.6 ng/mL (7.0-31.4) 07/29/16 00:42 TSH 4.136 mcIU/mL (0.350-4.840) 07/29/16 00:42 Urine Color Yellow (Yellow) 07/28/16 18:45 Urine Clarity Clear (Clear) 07/28/16 18:45 Urine pH 6.5 pH Units (5.0-8.0) 07/28/16 18:45 Ur Specific [place] 1.011 (1.010-1.025) 07/28/16 18:45 Urine Protein Negative mg/dL (Neg-Trace) 07/28/16 18:45 Urine Glucose (UA) Normal mg/dL (Normal) 07/28/16 18:45 Urine Ketones Negative mg/dL (Negative) 07/28/16 18:45 Urine Blood Negative (Negative) 07/28/16 18:45 Urine Nitrite Negative (Negative) 07/28/16 18:45 Urine Bilirubin Negative (Negative) 07/28/16 18:45 Urine Urobilinogen Normal mg/dL (Normal) 07/28/16 18:45 Ur Leukocyte Esterase Trace (Negative) H 07/28/16 18:45 Urine Microscopic RBC 0-3 per hpf (0-3) 07/28/16 18:45 Urine Microscopic WBC 3-5 per hpf (0-3) H 07/28/16 18:45 Ur Squamous Epith Cells Many per lpf (None-Few) H 07/28/16 18:45 Urine Bacteria None Seen per hpf (None-Few) 07/28/16 18:45 Hyaline Casts None Seen per lpf (None-Few) 07/28/16 18:45 Ur Culture Indicated? YES (NO) A 07/28/16 18:45 Ethyl Alcohol < 10 mg/dL (0-10) 07/29/16 00:[address] 07/28/16 18:29 IMPRESSION: 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 No acute intracranial abnormality is seen. D/ / 07/28/2016 20:07:32 Shay Figueroa MD / jeff Interpreting Provider: Shay Figueroa MD Chest X-Ray 07/30/16 16:53 IMPRESSION: A third pacer lead has been placed since the prior exam. No evident pneumothorax. Cardiac silhouette enlargement is not significantly changed. D/ / 07/30/2016 17:25:46 Luis Carrillo MD / jeff Interpreting Provider: Luis Carrillo MD - Attending Attestation My signature below is to certify that this patient is under my care and that I, or the Resident Physician working with me, has had a [id number] encounter with this patient. Plan of care has been reviewed and discussed in detail with the patient. Questions were answered to her satisfaction and reassurance. Advance care directive discussion with rest. The patient does not declare any healthy restrictions at this time. Outpatient medications schedules will be reviewed, confirmed and facilitated as appropriate. Reconciliation of home treatments including adjustments, substitutions and reintroduction as the patient's treatment regimen will address necessary maintenance therapies for chronic pre-existing medical conditions. Smoking counseling briefly addressed. The patient declares herself a nonsmoker. Hospital course will be dependent on collective clinical findings, treatment response and potential consultative interventions. The patient is at risk for acute clinical decline and morbidity given her advanced age, frailty, presenting chief complaints and associated comorbidities. Condition is serious. Prognosis is cautiously optimistic. CODE STATUS is full.
[2016-07-29 05:57] LABS: % Iron Saturation 20 % (15-50); Iron 67 mcg/dL (50-170); Transferrin 237 mg/dL (180-382)
[2016-07-29] MEDS ORDERED: *HR* Heparin 5,000 UNIT/ML VIAL SQ SCH (06:00)
--- NOTE | 2016-07-29 09:31 | ECHO - Doppler Report ---
Echo with Saline Contrast Name: Angel Vazquez Date of Study: 07/29/2016 Date: 1935 Ht: 65.0 in Medical Record#: [id number] Age: 81 Wt: 188.0 lb Gender: Female BSA: 1.93 Order #: [id number] Location: [facility] Room #: 3B41 Reading Physician: Obinna Seo DO, FACC, RADHA ARMSTRONG Certified Pesticide Applicator: Nancy Pretty, RVT, [facility] Ordering Physician: Josiah Gill MD Primary Physician: [facility] Indications: Syncope Impressions: LVEF 45%. Mildly dilated left ventricle with global hypokinesis. Indeterminate diastolic function. Atypical septal motion consistent with paced rhythm. Normal right ventricular structure and function. Severely dilated left atrium. Mild aortic regurgitation. Severe mitral regurgitation, which is somewhat posteriorly directed. Mild-moderate tricuspid regurgitation. Mild pulmonary hypertension. Estimated RVSP is 44 mmHg. Persistent bowing of the interatrial septum from left to right. No evidence of PFO with agitated saline contrast. Recommend cardiology evaluation. Left Ventricular Wall Motion: Rest Echo Findings The apex, apical inferior, mid inferior, basal inferior, apical anterior, mid anterior, basal anterior, apical septal, mid inferior septal, basal inferior septal, apical lateral, mid anterior lateral, basal anterior lateral, mid anterior septal, mid inferior lateral, basal anterior septal and basal inferior lateral botello were hypokinetic. Findings: Study Quality * Technically adequate exam. ECG Findings * Paced rhythm. Left Ventricle * LVEF 45%. * Mildly dilated left ventricle with global hypokinesis. * Indeterminate diastolic function. * Atypical septal motion consistent with paced rhythm. Right Ventricle * Normal right ventricular structure and function. Left Atrium * Severely dilated left atrium. Right Atrium * Mildly dilated right atrium. Interatrial Septum * No evidence of PFO with agitated saline contrast. Aortic Valve * Trileaflet aortic valve. * Mild aortic regurgitation. * No aortic stenosis. Mitral Valve * Mildly thickened mitral valve leaflets. * Severe mitral regurgitation, which is somewhat posteriorly directed. * No mitral stenosis. Tricuspid Valve * Normal tricuspid valve structure. * Mild-moderate tricuspid regurgitation. * Mild pulmonary hypertension. * Estimated RVSP is 44 mmHg. * Estimated RA pressure is 10 mmHg. Pulmonic Valve * Normal pulmonic valve structure. * Mild pulmonic regurgitation. Aorta * Normally sized aortic root. Pericardium * The pericardium appears normal. IVC * The IVC is not dilated. * < 50% respiratory change. Device lead * A device lead was visualized in the right atrium and right ventricle. Pulmonary Artery * Normal visualized portions of the main pulmonary artery. History Hypertension Diabetes Hypercholesteremia Family History of CAD Congestive Heart Failure Pacer/ICD Implant Contrast: Agitated saline 20 ml. Measurements: BP: 142/ 88 2D Normal Values IVSd: 1.00 cm 0.6 - 1.0 cm LVIDd: 5.80 cm 3.7 - 5.6 cm LVPWd: 1.00 cm 0.6 - 1.1 cm LVIDs: 4.50 cm 1.5 - 3.6 cm AO: 2.80 cm < 4.0 cm LA: 5.40 cm 2.0 - 4.0cm %FS: 26.20 cm >25 % LA volume: 170 Mitral Valve Peak E:1.05 m/sec Peak A:.47 m/sec E/A Ratio:2.2 Peak E' Lat Pacheco:13.4 cm/s Peak E' Med Pacheco:6.53 cm/s E/E' Lat Ratio:7.8 E/E' Med Ratio:16.1 Aortic Valve AI pressure Half-time: 428.00 msec Tricuspid Valve TV Peak Pacheco:2.92 m/sec TV Peak Grad:34.00 mmHg Updated by Obinna Seo DO, FACJohn, RADHA ARMSTRONG on 07/29/2016 9:26:28 AM electronically signed on 07/29/2016 9:28:36 AM with status of Final Wall Motion [place]: 1=Normal, 2=Hypokinesis, 3=Akinesis, 4=Dyskinesis, 5=Aneurysmal, 6=Hyperkinetic, X=Not Visualized (Blank)=Missing
--- NOTE | 2016-07-29 09:57 | Event Note ---
Date of Encounter: 07/29/16 Time of Encounter: 09:20 - Cardiology Event Note Cardiology consult for inpatient device check only. Patient has medtronic PPM. Device check completed this morning utilizing [employer]. Will update primary team with device interrogation report once available.
[2016-07-29] MEDS: Aspirin Enteric Coated 81 MG Tablet PO SCH (11:00)
[2016-07-29] MEDS: Metoprolol XL (24 HR) Succ 50 MG TAB.ER.24H PO SCH (11:01)
--- NOTE | 2016-07-29 12:39 | Event Note ---
Date of Encounter: 07/29/16 Time of Encounter: 10:15 Patient seen and examined. On examination, patient sitting upright in bed finishing her breakfast. Patient is very hard of hearing however is alert and oriented 3. She is now asymptomatic. She denies pain, lightheadedness and is endorsing a normal appetite. Abnormal urinalysis noted, patient denies dysuria and no evidence of infection, no leukocytosis, will await culture. Chronic kidney disease stage III versus acute kidney injury, did not have prior results to determine chronicity. We will obtain her records from the [place]. Echocardiogram abnormal with ejection fraction of 45%, global hypokinesis, abnormality with atrial septum. Will bring cardiology on board. Cardiology interrogated her pacemaker this morning and found it to be functioning normally. OT has recommended ECF placement, PT consultation pending. director of environmental services brought on board. Patient stating she lives at home with her grandson and her granddaughter and does not have any home health services. She states she gets around with a 4-point cane and her Rollator. 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 No acute intracranial abnormality is seen. D/ : / 07/28/2016 20:07:32 Shay Figueroa MD / jeff Interpreting Provider: Shay Figueroa MD Echocardiogram impressions: LVEF 45%. Mildly dilated left ventricle with global hypokinesis. Indeterminate diastolic function. Atypical septal motion consistent with paced rhythm. Normal right ventricular structure and function. Severely dilated left atrium. Mild aortic regurgitation. Severe mitral regurgitation, which is somewhat posteriorly directed. Mild-moderate tricuspid regurgitation. Mild pulmonary hypertension. Estimate RVSP is 44 mmHg. Persistent bowing of the anterior atrial septum from left to right. No evidence of PFO with agitated saline contrast. Recommend cardiology evaluation.
--- NOTE | 2016-07-29 13:26 | Event Note ---
Date of Encounter: 07/29/16 Time of Encounter: 13:00 - Cardiology Event Note Consult for abnormal echocardigram findings. TTE: EF 45%, mildly dilated LV with global hypokinesis, severely dilated left atrium, mild AR, severe MR, mild-moderate TR, mild PH, persistent of the interatrial septum from left to right, no evidence of PFO. Records reviewed--patient follows with Dr. Mccormack as outpatient. Hx of non- obstructive CAD and persistent afib. Reviewed office note from February 2016--EF was 35% at that time with severe MR and TR. Per note, she was to undergo evaluation for MV replacement/repair, possible AV david ablation, and upgrade of PPM to BiV-ICD. Echocardiogram results reviewed with Dr. Burton; since findings are not new, recommend close outpatient follow-up with Dr. Mccormack in 1-2 weeks.
--- NOTE | 2016-07-29 15:06 | Electrocardiograph Report ---
[facility] Test Date: 2016-07-28 Pat Name: Angel Vazquez Department: 105 Room: 3B41 Gender: F Brood Hatchery Manager: CAT : 1935 Requested By: De Loya Order Number: [id number] Reading MD: Obinna Seo DO Measurements Intervals [place] Rate: 84 P: GA: 0 QRS: -66 QRSD: 176 T: 7 QT: 439 QTc: 480 Interpretive Statements Ventricular paced rhythm Electronically Signed On 07-29-16 14:04:28 EST by Obinna Seo DO
[2016-07-29] MEDS ORDERED: *HR* Warfarin 3 MG TABLET PO SCH (18:00)
[2016-07-30 05:17] LABS: Calcium 9.1 mg/dL (8.6-10.8); Potassium 4.1 mEq/L (3.5-4.5)
[2016-07-30 09:24] LABS: INR 1.7; Prothrombin Time 18.4 Seconds (9.4-12.1)
--- NOTE | 2016-07-30 09:55 | Internal Med Progress Note ---
Date of Encounter: 07/30/16 Time of Encounter: 09:35 - Assessment and plan (1) CHF (congestive heart failure) Current Visit: Yes Status: Chronic Assessment and plan: Earlier this morning while the patient was eating breakfast, when she suddenly became confused. Telemetry informed the nurse that her heart rate was in the 30s. I evaluated her shortly thereafter and on examination, patient was resting supine in bed. Patient opened her eyes to voice and touch and was able to answer orientation questions however stated that she still felt really weak. Speech was slurred but intelligible. No focal neurological weaknesses noted. Domestic Freight Forwarder strength weak but equal bilaterally. Unclear causation at this time, we will bring cardiology back on board to review telemetry. EKG unremarkable with paced rhythm of 80. Bedside glucose 122. Patient then seen and reevaluated approx 15 minutes later, and she had began to wake up and become more interactive. She was seen and reexamined again around 1045 and she was back to her baseline. Then, at approx 1130, patient's heart rate again slowed to the 20 's on telemetry with several long pauses. Cardiology immediately to bedside- will initiate dopamine gtt. Patient remains alert and oriented x3 and is asking "is this why I keep passing out?" Echocardiogram abnormal with ejection fraction of 45%, global hypokinesis, abnormality with atrial septum. Per chart review, patient saw her customer loyalty representative Dr. Mccormack on 12/20/15 and at that time she had an echocardiogram that revealed an ejection fraction of 35% and severe mitral and tricuspid regurgitation. Reviewed with cardiology yesterday who recommend folllowing up with Dr Mccormack in 1-2 weeks. Cardiology interrogated her pacemaker yesterday and found it to be functioning normally. Echocardiogram impressions: LVEF 45%. Mildly dilated left ventricle with global hypokinesis. Indeterminate diastolic function. Atypical septal motion consistent with paced rhythm. Normal right ventricular structure and function. Severely dilated left atrium. Mild aortic regurgitation. Severe mitral regurgitation, which is somewhat posteriorly directed. Mild-moderate tricuspid regurgitation. Mild pulmonary hypertension. Estimate RVSP is 44 mmHg. Persistent bowing of the anterior atrial septum from left to right. No evidence of PFO with agitated saline contrast. Recommend cardiology evaluation. (2) Altered mental status Current Visit: Yes Status: Acute Assessment and plan: see prior note for CHF. Patient is still groggy on examination however she is still alert and oriented 3 and able to answer questions. Telemetry reviewed, heart rate in the 20s and 30s with long pauses noted at times. Cardiology on board. Initiating dopamine drip. (3) Near syncope Current Visit: Yes Status: Acute Assessment and plan: Appears secondary to cardiac etiology. Glucose normal, electrolytes unremarkable, no signs of active infection, sepsis, or other possible causes identified at this time. We will continue to investigate. (4) CKD (chronic kidney disease) stage 3, GFR 30-59 ml/min Current Visit: Yes Status: Chronic Assessment and plan: Report obtained from primary care, chronic kidney disease stage III, stable and consistent with her baseline (5) Cerebral vascular disease Current Visit: Yes Status: Chronic (6) Elevated troponin I level Current Visit: Yes Status: Resolved Assessment and plan: Borderline elevation at 0.04 upon arrival, negative 2 afterwards (7) Frail elderly Current Visit: Yes Status: Chronic Assessment and plan: OT and PT have recommended ECF placement. She currently lives with a grandson and a granddaughter. supervisor customer services on board. (8) HTN (hypertension) Current Visit: Yes Status: Chronic Assessment and plan: Controlled. We will continue to trend and adjust medications as indicated. Qualifiers: Hypertension type: essential hypertension Qualified Code(s): I10 - Essential (primary) hypertension (9) History of TIA (transient ischemic attack) Current Visit: Yes Status: Chronic (10) History of atrial fibrillation Current Visit: Yes Status: Chronic Assessment and plan: Cardiology on board. Coumadin slightly subtherapeutic, will increase dosage tonight. Subcutaneous heparin in the meantime for DVT prophylaxis (11) Pacemaker Current Visit: Yes Status: Chronic Assessment and plan: Interrogated yesterday and checked out fine however today does not appear to be functioning given that the patient's heart rate is in the 20s and 30s, cardiology on board. - Time Spent With Patient Greater than 35 minutes - Subjective Interval history: Patient seen and examined. On examination, patient resting supine in bed. Patient difficult to arouse but does slightly awaken with touch and voice. Patient answers questions correctly and is oriented 3 but remains extremely listless and pale. Patient states she feels very weak and does not know what is wrong with her. - Constitutional Vitals: Temp Pulse Resp BP Pulse Ox 97.8 F 85 15 136/84 95 07/30/16 07:17 07/30/16 07:17 07/30/16 07:17 07/30/16 07:17 07/30/16 07:17 General appearance: Present: cooperative, disheveled, A&O X 3, pleasant, answers questions appropriately - Head Head exam: Present: atraumatic, normocephalic - Eye Eye exam: Present: PERRL, conjuntiva pink, sclera anicteric Pupils: Present: PERRL - Neck Neck exam general surgery: Present: supple, trachea midline. Absent: lymphadenopathy - Respiratory Respiratory exam: Present: decreased breath sounds. Absent: accessory muscle use, rales, respiratory distress, rhonchi, wheezes - Cardiovascular Cardiovascular exam: Present: irregular rhythm, +S1, +S2. Absent: diastolic murmur, gallop, rubs, systolic murmur - GI/Abdominal GI/Abdominal exam: Present: normal bowel sounds, soft, no peritoneal signs. Absent: distended, tenderness - Extremities Exam Extremities exam: Present: warm, radial pulses palpable and symetrical. Absent : calf tenderness, cyanotic, pedal edema - Neurological Exam Neurological exam: Present: alert, altered, CN II-XII intact, oriented X3, no focal deficits, strengths equal and symetr throughout, speech deficit (chronic slurring). Absent: pronater drift, facial droop - Expanded Neurological Exam Neurological exam expanded: Present: protecting the airway Patient oriented to: Present: person, place, time Speech: Present: slurred (but intelligible) Neuro motor strength exam: LUE: 4, RUE: 4, LLE: 4, RLE: 4 Coma Scale Eye Opening: To Voice Coma Scale Motor Response: Obeys Commands Coma Scale Verbal Response: Oriented Coma Scale Total: 14 - Skin Skin exam: Present: dry, intact, pallor, warm Internal Medicine: Result - Labs CBC & Chem 7: 07/28/16 20:33 07/30/16 04:11 Labs: BMP 07/30/16 04:11 Sodium 140 Potassium 4.1 Chloride 108 Carbon Dioxide 23 BUN 36 H Creatinine 1.33 H Glucose 102 H Calcium 9.1 Cardiac Enzymes 07/29/16 Range/Units 11:58 Troponin I 0.01 (0-0.03) ng/mL - ABG Interpretation ABG results: PT/INR, D-dimer PT 18.4 Seconds (9.4-12.1) H 07/30/16 08:41 Consult Discharge Plan - Plan [facility]errals: [facility] [Primary Care Provider] -
--- NOTE | 2016-07-30 11:44 | Cardiology Consult Note ---
Addendum entered and electronically signed by Dana Fitch CNP 07/30/16 13: 29: Updated patient on device check report--recommend insertion of new lead. Patient verbalized understanding of alternatives, risks, and benefits and agrees to proceed with implantation of new pacer lead this afternoon. Family updated. Original Note: Date of Encounter: 07/30/16 Time of Encounter: 11:30 Assessment and Plan (1) Pacemaker Current Visit: Yes Status: Chronic Medtronic pacer placed 02/01/2010 at [facility] [place]. Device check completed yesterday showed normal functioning PPM--normal measurements/sensing, good battery life, no events, paced >99% Consultation this morning regarding bradycardia. Telemetry reviewed, HR as low as 30-40's with pause up to 12.8 seconds--patient lightheaded/dizzy/near syncopal. ECG/tele strips reviewed with Dr. Burton. Device check completed again after episode and spoke with Medtronic rep; noted increase in impedance since 07/29/16 and concern for lead fracture. Start on dopamine gtt, transfer to . If HR does not stabilize with dopamine, may need temporary pacer. Patient will likely need lead revision. Will discuss with EP, Dr. Ling. Reviewed with Dr. Ling, plan for lead replacement this afternoon. (2) Atrial fibrillation Current Visit: Yes Status: Chronic Hx of AFib on Coumadin therapy. Qualifiers: Atrial fibrillation type: persistent Qualified Code(s): I48.1 - Persistent atrial fibrillation (3) Bradycardia Current Visit: Yes Status: Acute plan as above. (4) CHF (congestive heart failure) Current Visit: Yes Status: Chronic History of systolic CHF. [facility] records note patient saw Dr. cMcormack in Feb 2016 with severe mitral and tricuspid regurgitation with mild pulmonary HTN. Chronic bilateral LE edema, no crackles on lungs exam. Echocardiogram completed yesterday, EF 45%, which has improved from previous ( per old records) 35% in February 2016. Continue betablocker and diuretic. No ACEi/ARB due to CKD. Qualifiers: Congestive heart failure type: systolic Congestive heart failure chronicity : chronic Qualified Code(s): I50.22 - Chronic systolic (congestive) heart failure Discussion w patient/family: The assessment and plan as outlined above was discussed with the patient and/or family members who expressed understanding and agreement. All questions were answered. Thank you for involving us in the care of your patient. Please call with any questions. The patient will be discussed and reviewed with Dr. Burton; changes to be made accordingly. History of Present Illness Consult date: 07/30/16 Requesting physician: Rosangela Burt Consult reason: Bradycardia Chief complaint: Dizziness, lightheadedness History of present illness: Ms. Vazquez is a 81 year old female with PMH significant for non-obstructive CAD, Afib, bradycardia s/p PPM, non-ischemic cardiomyopathy with systolic dysfunction who presented to [facility] from [place] with chief compliant of lightheadedness. Cardiology consulted yesterday to complete inpatient device ( Medtronic PPM) check which demonstrated a normal functioning PPM, all measurements were appropriate, paced >99%, and good battery. Cardiology consulted this AM for bradycardia. Upon review, HR have dropped in the 30s-40's with pauses up to 12.8 seconds. Upon exam, she is lethargic, dizzy, and feels "faint." Per review of records, routinely follows with Dr. Pike in [place] for device checks, mgmt of valvular heart disease, CHF, and afib. She was undergoing evaluation for repair/replacement of MV. Past Med Surg Social Fam HX - Past Medical History Medical history: CHF, CVA, hypertension, renal disease Psychiatric history: no psych history - Past Surgical History Surgical History: herniorrhaphy (ventral), hysterectomy (s/p endometrial CA by Dr. Anderson), pacemaker - Social History Smoking Status: Never smoker Alcohol use: none Drug use: none - Family History Mother Living Status: Cause of : cerebral hemmorage Father Living Status: Age at : 81 Medications and Allergies Aspirin [Lo-Dose Aspirin EC] 81 mg PO DAILY 07/29/16 [History] Atorvastatin [Lipitor] 40 mg PO HS 07/29/16 [History] Calcitriol [Rocaltrol] 0.25 mcg PO DAILY 07/29/16 [History] Ferrous Gluconate 324 mg PO BID 07/29/16 [History] Furosemide [Lasix] 40 mg PO BID 07/29/16 [History] Isosorbide MONOnitrate (24 HR) [Imdur] 15 mg PO DAILY 07/29/16 [History] Lisinopril [Zestril] 10 mg PO DAILY 07/29/16 [History] Metoprolol Succinate 200 mg PO DAILY 07/29/16 [History] Oxybutynin Chloride [Ditropan Xl] 5 mg PO BID 07/29/16 [History] Potassium Chloride 20 meq PO DAILY 07/29/16 [History] Ranitidine HCl [Heartburn Relief] 150 mg PO BID 07/29/16 [History] Triamcinolone Acetonide 1 appl TP BID 07/29/16 [History] Warfarin [Coumadin] 6 mg PO MOWEFR 07/29/16 [History] Warfarin [Coumadin] 8 mg PO SUTUTHSA 07/29/16 [History] Allergies morphine Allergy (Verified 07/28/16 18:15) Nausea naproxen [From Naprosyn] Allergy (Verified 07/28/16 18:16) Hives sulfamethoxazole [From Bactrim] Allergy (Verified 07/28/16 18:16) Hives trimethoprim [From Bactrim] Allergy (Verified 07/28/16 18:16) Hives All Systems Review: A 10-system review of systems was performed and is negative for pertinent findings except as documented above in the HPI. - Cardiovascular Cardiovascular: as per HPI Physical Examination General: Conversant, Other (pale, lethargic) Cardiac: Other (bradycardiac, +3/6 murmur) Lungs: Normal Breath Sounds Neuro: Alert and responsive (drowsy) Abdomen: Soft Skin: No rashes noted on visualized skin Extremities: Other (bilateral lower extremity edema/redness) Results 07/28/16 20:33 07/30/16 04:11 Lab Results 07/29/16 07/30/16 07/30/16 11:58 04:11 08:41 INR 1.7 Sodium 140 Potassium 4.1 Chloride 108 Carbon Dioxide 23 BUN 36 H Creatinine 1.33 H Glucose 102 H Calcium 9.1 Troponin I 0.01 Active Medications Acetaminophen (Tylenol) 650 mg PO Q6HR PRN PRN Reason: Mild Pain (1-3) Stop: 01/27/17 23:48 Aspirin (Aspirin Ec) 81 mg PO DAILY FRANCISCO Stop: 01/28/17 09:01 Last Admin: 07/29/16 11:00 Dose: 81 mg Docusate Sodium (Colace) 100 mg PO BID PRN PRN Reason: Constipation Stop: 01/27/17 23:48 Heparin Sodium (Porcine) (Heparin) 5,000 unit SQ Q12HR [facility] Stop: 01/29/17 18:01 Dopamine HCl/Dextrose (Dopamine Premix (400mg/250ml D5w)) 400 mg in 250 mls @ 16.069 mls/hr IVC .[id number] FRANCISCO; 5 MCG/KG/MIN PRN Reason: Protocol Stop: 01/29/17 11:46 Isosorbide Dinitrate (Isordil) 15 mg PO BID [facility] Stop: 01/28/17 09:01 Last Admin: 07/29/16 21:10 Dose: 15 mg Lisinopril (Zestril) 20 mg PO DAILY [facility] PRN Reason: Protocol Stop: 01/28/17 09:01 Last Admin: 07/29/16 11:01 Dose: 20 mg Meclizine HCl (Antivert) 12.5 mg PO TID [facility] Stop: 01/28/17 01:01 Last Admin: 07/29/16 21:10 Dose: 12.5 mg Metoprolol Succinate (Toprol Xl) 200 mg PO DAILY [facility] Stop: 01/28/17 09:01 Last Admin: 07/29/16 11:01 Dose: 200 mg Naloxone HCl (Narcan) 0.4 mg IVP Q2MIN PRN PRN Reason: Opioid Reversal Stop: 01/27/17 23:48 Omeprazole (Prilosec) 20 mg PO BID [facility] Stop: 01/28/17 09:01 Last Admin: 07/29/16 21:10 Dose: 20 mg Ondansetron HCl (Zofran Odt) 4 mg SL Q8HR PRN PRN Reason: Nausea And Vomiting Stop: 01/27/17 23:48 Oxybutynin Chloride (Ditropan) 5 mg PO BID [facility] Stop: 01/28/17 09:01 Last Admin: 07/29/16 21:10 Dose: 5 mg Oxycodone HCl (Roxicodone) 10 mg PO Q6HR PRN PRN Reason: Moderate Pain (4-6) Stop: 01/27/17 23:48 Simvastatin (Zocor) 40 mg PO HS [facility] Stop: 01/28/17 21:01 Last Admin: 07/29/16 21:10 Dose: 40 mg Warfarin Sodium (Coumadin) 6 mg PO MoWeFr@1800 [facility] Stop: 01/28/17 18:01 Last Admin: 07/29/16 17:53 Dose: 6 mg Warfarin Sodium (Coumadin) 8 mg PO QamaruThSa@1800 [facility] Stop: 01/29/17 18:01 - Imaging and Cardiology Echo: report reviewed Other Results: Telemetry reviewed with - EKG Interpretation EKG results cardiology: personally reviewed Consult Discharge Plan - Plan [facility]errals: [facility] [Primary Care Provider] -
[2016-07-30] MEDS ORDERED: ceFAZolin 2,000 MG in D5% in Water 100 ML IVPB ONE (12:50)
[2016-07-30] MEDS ORDERED: Lidocaine -MPF 1% 5 ML AMPUL INFILT ONE (12:58)
[2016-07-30] MEDS: Aspirin Enteric Coated 81 MG Tablet PO SCH (13:41)
[2016-07-30] MEDS: Metoprolol XL (24 HR) Succ 50 MG TAB.ER.24H PO SCH (13:42)
--- NOTE | 2016-07-30 14:52 | Electrocardiograph Report ---
[facility] Test Date: 2016-07-30 Pat Name: MONISHA SCHUMACHER Department: 113 Room: 3B41 Gender: F Clinical Research Scientist: : 1935 Requested By: Rosangela Burt Order Number: [id number] Reading MD: Shanda Ling Measurements Intervals [place] Rate: 80 P: MA: 0 QRS: 265 QRSD: 183 T: 64 QT: 478 QTc: 513 Interpretive Statements ELECTRONIC VENTRICULAR PACEMAKER ABNORMAL RHYTHM ECG INTERPRETATION BASED ON A DEFAULT AGE OF 40 YEARS Electronically Signed On 07-30-16 14:51:29 EST by Shanda Ling
--- NOTE | 2016-07-30 15:02 | Pre-Sedation Evaluation ---
Pre-sedation evaluation - Pre-sedation checklist Date of procedure: 07/30/16 Recent Vitals: Last Vital Signs Temp 97.8 F 07/30/16 07:17 Pulse 85 07/30/16 07:17 Resp 15 07/30/16 07:17 BP 136/84 07/30/16 07:17 Pulse Ox 95 07/30/16 08:15 H&P (including ROS) documented in medical record: No Previous reaction to sedatives/anesthetics: No Dietary Status: NPO after Midnight Airway Assessment: Patient can open mouth completely, TMJ function normal Possible difficult airway: No ASA Classification *see protocol: CLASS II-Mild systemic disease Plan of Care: Pt appropriate candidate for procedure/moderate/conscious sedation , Risks/benefits of procedure/sedation discussed w/ patient/family
[2016-07-30] MEDS ORDERED: 0.9 % Sodium Chloride 1,000 ML ONE (15:27)
[2016-07-30] MEDS ORDERED: *HR* Midazolam HCl 2 MG/2 ML VIAL ONE (15:28)
[2016-07-30] MEDS ORDERED: *HR* FentaNYL (PF) 100 MCG/2 ML VIAL ONE (15:28)
[2016-07-30] MEDS ORDERED: Water for inj. (sterile) 10 ML IV ONE (15:39)
[2016-07-30] MEDS ORDERED: 0.9 % Sodium Chloride 500 ML ONE (15:39)
[2016-07-30] MEDS ORDERED: *HR* Morphine 2 MG/ML SYRINGE IVP PRN (16:53)
--- NOTE | 2016-07-30 17:28 | Invasive Diagnostic Lab ---
Single Chamber Pacemaker Insertion Name: Angel Vazquez Date of Study: 07/30/2016 Date: 1935 Ht: 165.0 cm / 65.0 in Medical Record#: [id number] Age: 81 Wt: 86.0 kg / 189.6 lb Gender: Female BSA: 1.93 Location: Fluoro Dose: 148 mGy BMI: 31.59 Performing MD: Neil Ling MD, [facility] Procedures Performed: Procedure SINGLE LEAD INSERTION W/O GEN - PM/ICD LEAD REVISION RA/RV PM/ICD Indications: Description Pacemaker lead fracture Impressions: LEAD ONLY ACTION * Right ventricular lead was successfully inserted. Recommendations: The patient will follow-up in 4-6 weeks for a post-pacemaker interrogation and evaluation with their Livestock Nutritionist. Procedure Description: After informed consent was obtained, the patient was brought to the laboratory in the fasting, post absorptive state. The patient was prepped and draped in sterile fashion exposing the left chest. Local anesthesia was performed using 1% Lidocaine. A 4cm incision was created through the old scar and carried down to the prepectoral fascia. The old device was released form the scar tissue. At that level, a pocket was created to accomodate and size the hardware. This portion of the procedure used sharp dissection, blunt dissection and electrocautery. Venous access was obtained using an axillary vein stick with a modified Seldinger technique using one 7-Bul[place] Cook sheaths. A glide wire was required. The right ventricular lead was manipulated under direct fluoroscopy to find the physically stable and electrically optimal location in the RV [place]. Hemostasis was obtained. The previously placed sponge was removed from the pocket. The pocket was copiously irrigated with antibiotic solution. The device was connected to the lead in standard fashion and set screws deployed. The old RV lead was capped. The device was placed in the pocket. No anchoring sutures were placed. The wound was closed in layers starting with 2-0 Vicryl for the deep layer and 4-0 Vicryl for the skin. Steri-Strips were placed and 4x4s secured with tape. The patient tolerated the procedure well. Complications: None Disposition: The patient was returned to the recovery room. Patient will be scheduled to have a follow-up wound check in one week here at [facility]. PPM Device Information: Women'S Apparel Salesperson Model Name Model No. Serial No. [place] [id number] [id number] PPM Lead(s) Information: Women'S Apparel Salesperson Model Name Model No. Serial No. Placement Medtronic 5076 [id number] RA appendage Medtronic 5076 [id number] RV [place] Medtronic 5076-58cm [id number] RV [place] Device Measurement Data: Sensing (mV) Threshold (V) / (msec) Impedance (Ohms) Atrial Lead RV Lead 7.4 0.6 / 0.5 1021 LV Lead Device Settings: MODE: VVIR Lower Rate: 60 bpm FERMIN Delay: Upper Rate: 120 bpm PAV Delay: Procedure Medications: Time Medication Dose Unit Route 03:38 PM Oxygen 2 L/min nasal cannula 03:44 PM Oxygen 6 L/min simple face mask 03:47 PM Ancef 2 gram Intravenous 03:47 PM Versed 1 Mg Intravenous 03:47 PM Fentanyl 25 Mcg Intravenous 03:48 PM Lidocaine 2% 8 mL Subcutaneous 03:48 PM Versed 1 Mg Intravenous 03:48 PM Lidocaine 2% 4 mL Subcutaneous 03:50 PM Fentanyl 25 Mcg Intravenous 03:50 PM Lidocaine 2% 4 mL Subcutaneous 03:52 PM Lidocaine 2% 3 mL Subcutaneous 03:53 PM Lidocaine 2% 4 mL Subcutaneous 04:16 PM Fentanyl 25 Mcg Intravenous Contrast: Isovue 370 10 ml. Complications: No complications occurred during the procedure. Complication None Updated by Neil Ling MD, FACC on 07/30/2016 5:15:39 PM electronically signed on 07/30/2016 5:21:21 PM with status of Final
[2016-07-30] MEDS: *HR* Heparin 5,000 UNIT/ML VIAL SQ SCH (17:53)
[2016-07-30] MEDS ORDERED: *HR* Warfarin 4 MG TABLET PO SCH (18:00)
[2016-07-31 04:55] LABS: INR 1.6; Prothrombin Time 17.2 Seconds (9.4-12.1)
[2016-07-31 05:07] LABS: Calcium 8.9 mg/dL (8.6-10.8); Potassium 3.9 mEq/L (3.5-4.5)
[2016-07-31] MEDS: *HR* Heparin 5,000 UNIT/ML VIAL SQ SCH ×2 (07:03→16:44)
[2016-07-31] MEDS: Aspirin Enteric Coated 81 MG Tablet PO SCH (08:44)
[2016-07-31] MEDS: Metoprolol XL (24 HR) Succ 50 MG TAB.ER.24H PO SCH (08:45)
--- NOTE | 2016-07-31 09:28 | Cardiology Progress Note ---
Date of Encounter: 07/31/16 Time of Encounter: 09:00 Assessment and Plan (1) Pacemaker Current Visit: Yes Status: Chronic [employer] pacer placed 02/01/2010 at [facility] in [place]. Device check completed 07/29/16 showed normal functioning PPM--normal measurements/sensing, good battery life, no events, paced >99% Consultation 07/30/16 regarding bradycardia. Telemetry reviewed, HR as low as 30-40's with pause up to 12.8 seconds--patient lightheaded/dizzy/near syncopal. ECG/tele strips reviewed with Dr. Burton. Device check completed on 07/30/16 again after episode and spoke with [employer] rep; noted increase in impedance since 07/29/16 and concern for lead fracture. RV lead was successfully inserted on 07/30/16. No recurrent issues or bradycardia overnight. Device check completed this AM showed normal functioning dual chamber PPM. CXR yesterday evening stable s/p lead implantation. CXR this AM pending. Left upper chest wall site stable, mild swelling noted. No ecchymosis or oozing noted. Recommend 1 week follow-up with Dr. Mccormack (known to patient). Recommend resuming Coumadin in 7 days. If CXR satisfactory this AM, Cardiology will sign-off. (2) Atrial fibrillation Current Visit: Yes Status: Chronic Hx of AFib on Coumadin therapy. Qualifiers: Atrial fibrillation type: persistent Qualified Code(s): I48.1 - Persistent atrial fibrillation (3) Bradycardia Current Visit: Yes Status: Acute plan as above. (4) CHF (congestive heart failure) Current Visit: Yes Status: Chronic History of systolic CHF. [facility] records note patient saw Dr. Mccormack in Feb 2016 with severe mitral and tricuspid regurgitation with mild pulmonary HTN. Chronic bilateral LE edema, no crackles on lungs exam. Echocardiogram completed yesterday, EF 45%, which has improved from previous ( per old records) 35% in February 2016. Continue betablocker and diuretic. No ACEi/ARB due to CKD. Qualifiers: Congestive heart failure type: systolic Congestive heart failure chronicity : chronic Qualified Code(s): I50.22 - Chronic systolic (congestive) heart failure Discussion w patient/family: The assessment and plan as outlined above was discussed with the patient and/or family members who expressed understanding and agreement. All questions were answered. Thank you for involving us in the care of your patient. Please call with any questions. The patient will be discussed and reviewed with Dr. Burton; changes to be made accordingly. Subjective Principal diagnosis: PPM lead fracture. Interval history: Seen and examined. No issues overnight. Denies recurrent dizziness, feeling faint, or lightheadedness. Objective Vital Signs, Last 4 Hours Temp Pulse Resp BP Pulse Ox 07/31/16 07:44 61 07/31/16 07:30 98.1 F 61 18 144/99 93 L General: Conversant HEENT: Atraumatic, Normocephaly Cardiac: Reg Rate and Rhythm, Normal S1 and S2 Lungs: Normal Breath Sounds Neuro: Alert and responsive Abdomen: Soft Skin: No rashes noted on visualized skin Musculoskeletal: Other (mild edema to left upper chest wall PPM site) Extremities: Other (chronic BLE edema/discoloration. ) Results 07/28/16 20:33 07/31/16 04:35 Lab Results 07/30/16 07/31/16 07/31/16 08:41 04:35 04:35 INR 1.7 1.6 Sodium 139 Potassium 3.9 Chloride 107 Carbon Dioxide 22 BUN 35 H Creatinine 1.23 H Glucose 108 H Calcium 8.9 Active Medications Acetaminophen (Tylenol) 650 mg PO Q6HR PRN PRN Reason: Mild Pain (1-3) Stop: 01/27/17 23:48 Last Admin: 07/31/16 08:45 Dose: 650 mg Aspirin (Aspirin Ec) 81 mg PO DAILY [facility] Stop: 01/28/17 09:01 Last Admin: 07/31/16 08:44 Dose: Not Given Docusate Sodium (Colace) 100 mg PO BID PRN PRN Reason: Constipation Stop: 01/27/17 23:48 Heparin Sodium (Porcine) (Heparin) 5,000 unit SQ Q12HR [facility] Stop: 01/29/17 18:01 Last Admin: 07/31/16 07:03 Dose: 5,000 unit Isosorbide Dinitrate (Isordil) 15 mg PO BID [facility] Stop: 01/28/17 09:01 Last Admin: 07/31/16 08:43 Dose: 15 mg Lisinopril (Zestril) 20 mg PO DAILY [facility] PRN Reason: Protocol Stop: 01/28/17 09:01 Last Admin: 07/31/16 08:44 Dose: 20 mg Meclizine HCl (Antivert) 12.5 mg PO TID [facility] Stop: 01/28/17 01:01 Last Admin: 07/31/16 08:45 Dose: Not Given Metoprolol Succinate (Toprol Xl) 200 mg PO DAILY [facility] Stop: 01/28/17 09:01 Last Admin: 07/31/16 08:45 Dose: 200 mg Morphine Sulfate (Morphine Sulfate) 2 mg IVP Q4HR PRN PRN Reason: Severe Pain Stop: 01/29/17 16:54 Naloxone HCl (Narcan) 0.4 mg IVP Q2MIN PRN PRN Reason: Opioid Reversal Stop: 01/27/17 23:48 Omeprazole (Prilosec) 20 mg PO BID [facility] Stop: 01/28/17 09:01 Last Admin: 07/31/16 08:45 Dose: 20 mg Ondansetron HCl (Zofran Odt) 4 mg SL Q8HR PRN PRN Reason: Nausea And Vomiting Stop: 01/27/17 23:48 Oxybutynin Chloride (Ditropan) 5 mg PO BID [facility] Stop: 01/28/17 09:01 Last Admin: 07/31/16 08:43 Dose: 5 mg Oxycodone HCl (Roxicodone) 10 mg PO Q6HR PRN PRN Reason: Moderate Pain (4-6) Stop: 01/27/17 23:48 Simvastatin (Zocor) 40 mg PO HS [facility] Stop: 01/28/17 21:01 Last Admin: 07/30/16 20:37 Dose: 40 mg Warfarin Sodium (Coumadin) 6 mg PO [email or web address] [facility] Stop: 01/28/17 18:01 Last Admin: 07/29/16 17:53 Dose: 6 mg Warfarin Sodium (Coumadin) 8 mg PO [email or web address] [facility] Stop: 01/29/17 18:01 Impressions Chest X-Ray 07/30/16 11:54 IMPRESSION: 1. Right upper extremity PICC tip terminates at the atrial caval junction. 2. Stable cardiomegaly. 3. Basilar atelectasis. D/ / 07/30/2016 13:18:02 Deyanira Ventura MD / jeff Interpreting Provider: Deyanira Ventura MD Chest X-Ray 07/30/16 16:53 IMPRESSION: A third pacer lead has been placed since the prior exam. No evident pneumothorax. Cardiac silhouette enlargement is not significantly changed. D/ / 07/30/2016 17:25:46 Luis Carrillo MD / jeff Interpreting Provider: Luis Carrillo MD - Imaging and Cardiology Chest Xray: report reviewed Other Results: PPM report reviewed. - EKG Interpretation EKG results cardiology: personally reviewed Consult Discharge Plan - Plan [facility]errals: [facility] [Primary Care Provider] -
--- NOTE | 2016-07-31 21:18 | Internal Med Progress Note ---
Date of Encounter: 07/31/16 Time of Encounter: 13:10 - Assessment and plan (1) Acute kidney injury superimposed on CKD Current Visit: Yes Status: Acute Assessment and plan: Improving. Monitor renal function. (2) Bradycardia Current Visit: Yes Status: Acute Assessment and plan: Due to pace maker lead fracture. Pt is s/p pacemaker lead placement. Ride Attendant is following the pt (3) Chronic systolic CHF (congestive heart failure) Current Visit: Yes Status: Acute Assessment and plan: Stable. Ride Attendant is following the pt (4) Near syncope Current Visit: Yes Status: Acute Assessment and plan: Possibly secondary to bradycardia. Improved. (5) Chronic anticoagulation Current Visit: Yes Status: Chronic Assessment and plan: Warfarin is held per cardiology. Can resume warfarin in 7 days, per cardiology (6) History of atrial fibrillation Current Visit: Yes Status: Chronic Assessment and plan: Rate controlled - Subjective Interval history: Pt is seen and examined at the bedside and chart reviewed. Pt reports feeling a lot better better than yesterday. Denies significant pain, dizzy spells, nausea , vomiting, fever, chills. PT recommends placement - pt is awaiting placement to [facility] - Constitutional Vitals: Temp Pulse Resp BP Pulse Ox 97.4 F L 60 16 128/76 96 07/31/16 20:26 07/31/16 20:26 07/31/16 20:26 07/31/16 20:26 07/31/16 20:26 Exam: General: Not in acute distress at the time of my evaluation Lungs: Clear to auscultation Cardiac: Regular rate and rhythm. No significant murmurs Abdomen: Soft, non tender. Bowel sounds present Neurological: Alert and oriented. No gross localizing deficits Psych: Not agrressive or agitated Extremities: no significant leg edema. Has left arm sling place. Skin: No generalized rash Internal Medicine: Result - Labs CBC & Chem 7: 07/28/16 20:33 07/31/16 04:35 Labs: BMP 07/31/16 04:35 Sodium 139 Potassium 3.9 Chloride 107 Carbon Dioxide 22 BUN 35 H Creatinine 1.23 H Glucose 108 H Calcium 8.9 - ABG Interpretation ABG results: PT/INR, D-dimer PT 17.2 Seconds (9.4-12.1) H 07/31/16 04:35 - Impressions Impressions Chest X-Ray 07/30/16 16:53 IMPRESSION: A third pacer lead has been placed since the prior exam. No evident pneumothorax. Cardiac silhouette enlargement is not significantly changed. D/ / 07/30/2016 17:25:46 Luis Carrillo MD / jeff Interpreting Provider: Luis Carrillo MD Chest X-Ray 07/31/16 06:00 IMPRESSION: Left subclavian cardiac device in place as above. Suspected small left pleural effusion. No pneumothorax. D/ / Su Mitchell Cha, MD / Su Mitchell Cha, MD Interpreting Provider: Su Mitchell Cha, MD Consult Discharge Plan - Plan Referrals: [facility],PCP [Primary Care Provider] - 08/08/16 2:30 pm ([facility] @ 1230 and then you have an appointment with Otis the Pharmacist on 08-08@ 1300 and then your follow up on 08-08-16 @ 1430.)
[2016-08-01 04:38] LABS: Mean Corpuscular HGB Conc 32.7 g/dL (31.6-35.5); Mean Corpuscular Hemoglobin 32.8 pg (28.0-33.3); Mean Corpuscular Volume 100.3 fL (83.0-100.0); Mean Platelet Volume 13.8 fL (9.4-12.4); Platelet Count 109 K/mcL (140-400); Red Blood Count 2.99 M/mcL (3.82-4.97); Red Cell Distribution Width 12.9 % (11.5-14.5)
[2016-08-01 04:46] LABS: Calcium 8.3 mg/dL (8.6-10.8); Potassium 3.9 mEq/L (3.5-4.5)
[2016-08-01 05:11] LABS: Hemoglobin 9.8 g/dL (11.5-15.4)
[2016-08-01 07:04] VITALS: BP 138/94
[2016-08-01] MEDS: Aspirin Enteric Coated 81 MG Tablet PO SCH (09:06)
[2016-08-01] MEDS: Metoprolol XL (24 HR) Succ 50 MG TAB.ER.24H PO SCH (09:07)
[2016-08-01] MEDS ORDERED: Furosemide 20 MG/2 ML VIAL IVP ONE (10:44)
--- NOTE | 2016-08-01 10:48 | Discharge Summary ---
Date of Encounter: 08/01/16 Time of Encounter: 10:46 - Discharge Diagnosis (1) Acute kidney injury superimposed on CKD Priority: Secondary Status: Acute Comments: Improving. (2) Bradycardia Priority: Secondary Status: Acute Comments: Due to pacemaker lead fracture. Patient is status post RV lead insertion. HR is stable now (3) Chronic systolic CHF (congestive heart failure) Priority: Secondary Status: Acute Comments: LV ejection fraction 45%. Quilt Sewer recommends to hold SALVATORE inhibitor. Continue beta nilay and diuretic (4) Near syncope Priority: Secondary Status: Acute Comments: Possibly due to volume depletion versus bradycardia. Improved (5) Chronic anticoagulation Priority: Secondary Status: Chronic Comments: Patient was on warfarin for anticoagulation for atrial fibrillation. Warfarin is held after pacemaker insertion. Can resume from 08/07/16 (6) History of atrial fibrillation Priority: Secondary Status: Chronic Comments: s/p pace maker insertion (7) Pacemaker lead fracture Priority: Primary Status: Acute Qualifiers: Qualified Code(s): T82.110A - Breakdown (mechanical) of cardiac electrode, initial encounter (8) Physical deconditioning Priority: Secondary Status: Acute Comments: Physical therapy recommends rehabilitation (9) Postural dizziness with presyncope Priority: Secondary Status: Acute - Discharge Medications Home Medications: Aspirin [Lo-Dose Aspirin EC] 81 mg PO DAILY 07/29/16 [History] Atorvastatin [Lipitor] 40 mg PO HS 07/29/16 [History] Calcitriol [Rocaltrol] 0.25 mcg PO DAILY 07/29/16 [History] Ferrous Gluconate 324 mg PO BID 07/29/16 [History] Furosemide [Lasix] 40 mg PO BID 07/29/16 [History] Isosorbide MONOnitrate (24 HR) [Imdur] 15 mg PO DAILY 07/29/16 [History] Metoprolol Succinate 200 mg PO DAILY 07/29/16 [History] Oxybutynin Chloride [Ditropan Xl] 5 mg PO BID 07/29/16 [History] Ranitidine HCl [Heartburn Relief] 150 mg PO BID 07/29/16 [History] Triamcinolone Acetonide 1 appl TP BID 07/29/16 [History] Warfarin [Coumadin] 6 mg PO MOWEFR 07/29/16 [History] Warfarin [Coumadin] 8 mg PO SUTUTHSA 07/29/16 [History] Potassium Chloride 20 meq PO BID #30 08/01/16 [Rx] Allergies/Adverse Reactions: Allergies morphine Allergy (Verified 07/28/16 18:15) Nausea naproxen [From Naprosyn] Allergy (Verified 07/28/16 18:16) Hives sulfamethoxazole [From Bactrim] Allergy (Verified 07/28/16 18:16) Hives trimethoprim [From Bactrim] Allergy (Verified 07/28/16 18:16) Hives Procedures/tests Complete & Pending: Procedures Performed prior 72 hours Category Date Time Status CL Insert Permanent Pacemaker [CL] Routine Pattern Carrier 07/30/16 12:50 Completed ECG 12 lead ECG [ECG] Routine Y 07/30/16 09:37 Completed ITS Impressions ITS Impressions Head CT 07/28/16 18:29 IMPRESSION: 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 No acute intracranial abnormality is seen. D/ : / 07/28/2016 20:07:32 Shay Figueroa MD / jeff Interpreting Provider: Shay Figueroa MD Chest X-Ray 07/30/16 11:54 IMPRESSION: 1. Right upper extremity PICC tip terminates at the atrial caval junction. 2. Stable cardiomegaly. 3. Basilar atelectasis. D/ / 07/30/2016 13:18:02 Deyanira Ventura MD / jeff Interpreting Provider: Deyanira Ventura MD Chest X-Ray 07/30/16 16:53 IMPRESSION: A third pacer lead has been placed since the prior exam. No evident pneumothorax. Cardiac silhouette enlargement is not significantly changed. D/ / 07/30/2016 17:25:46 Luis Carrillo MD / jeff Interpreting Provider: Luis Carrillo MD Chest X-Ray 07/31/16 06:00 IMPRESSION: Left subclavian cardiac device in place as above. Suspected small left pleural effusion. No pneumothorax. D/ / Su Mitchell Cha, MD / Su Mitchell Cha, MD Interpreting Provider: Su Mitchell Cha, MD Date of admission: 07/28/16 22:47 [facility] care physician: [facility] Consults: 07/28/16 08:00 Consult to Cardiology [CONS] Routine Comment: Consulting Provider: Lebron Sexton Reason for Consult: Presyncope/syncope/postural dizziness inpatient with CAD/ CHF and pacemaker. Please Evaluate and advise. Call Completed: No 07/28/16 23:55 Consult to Occupational Therapy [CONS] Routine Comment: Evaluate, develop and implement POC Consult to Physical Therapy [CONS] Routine Comment: Evaluate, develop and implement POC 07/29/16 12:34 Consult to Guest Associate [CONS] Routine Reason for SW Consult: OT recs ECF 07/30/16 09:49 Consult to Cardiology [CONS] Routine Comment: Consulting Provider: Lebron Sexton Reason for Consult: eating breakfast, bradyed down to 30's for several minutes, pacemaker finally began to pace- now listless, weak and difficult to arouse Time Notified: 09:50 Call Completed: Yes 07/30/16 11:47 Consult to PICC team [Consult to Invasive Line Access Team] [CONS] Stat Reason for Consult: needs dopamine gtt. HR 20s and 30s with long pauses Line Type: Midline 07/30/16 12:58 Consult to Invasive Line Access Team [CONS] Routine Reason for Consult: Picc Line Insertion Line Type: PICC Discharging clinician: Ramya Medrano Anticipated date of discharge: 08/01/16 - Patient Status Disposition: Transfer [facility] Condition: Fair Functional capacity at discharge: uses cane/walker Overall status at discharge: patient is progressing back to baseline - Discharge Instructions Instructions: Heart Failure (DC), Pacemaker (DC) Follow Up With: Rasheed Mccormack MD [Non-Partnered Physician] - 08/15/16 12:00 pm ([facility] the [facility] with [facility] the [facility].) [facility] [Primary Care Provider] - (All of your appointments at the [facility] has been cancelled) Additional Instructions: [facility] RECOMMENDS RESUMING COUMADIN ON 08/06/2016. - Diet and Activity Activity: as per physical therapy Diet: low salt diet Hospital course: Ms. Vazquez is an 81-year-old female with past medical history significant for atrial fibrillation on chronic configuration with warfarin, chronic systolic congestive heart failure - presented to the emergency department from [place] with history of lightheadedness. She was noted to be in acute on chronic renal failure. Initial pacemaker interrogation was normal. Patient was confused and was bradycardic with heart rate in the 30s on 2016. Quilt Sewer was reconsulted and the patient was taken for RV lead insertion. Device check showed normal functioning dual-chamber pacemaker. Chest x-ray showed good position of the leads. Quilt Sewer recommended to continue beta nilay and diuretics for systolic congestive heart failure. His ejection fraction improved to 45% and cardiology team recommended to discontinue lisinopril due to chronic kidney disease. Patient is advised to follow with pig iron loader in 1 week and resume warfarin in 7 days. Patient was evaluated by the physical therapist, who recommended rehabilitation. Patient will be discharged to rehabilitation at the [place] - Time Spent with Patient Total time spent providing and/or coordinating discharge services: - Constitutional Vitals: Temp Pulse Resp BP Pulse Ox 97.9 F 61 18 138/94 96 08/01/16 07:00 08/01/16 07:35 08/01/16 07:00 08/01/16 07:00 08/01/16 07:00 Exam: General: Not in acute distress at the time of my evaluation Lungs: Few basilar crackles Cardiac: Regular rate and rhythm. No significant murmurs Abdomen: Soft, non tender. Bowel sounds present Neurological: Alert and oriented. No gross localizing deficits Psych: Not agrressive or agitated Extremities: Bilateral lower extremity edema
== END 2016-08-01 11:41 | DRG 261 ==
LOC: EMEROO 18:13 → 3BNU 22:47 → 2NNU 07-30 15:16
PROVIDERS: ADMIT Internal Medicine; ATTEND Nurse Practitioner Family